=== PATIENT | male | born 1935 | race African-American/Black ===

== ENCOUNTER 2017-01-26 18:10 | Inpatient (IN) | payer MEDICARE, BC ==
[~2017-01-26] VITALS: Ht 172.7 cm; Wt 78.0 kg
[~2017-01-26 18:10] MED LIST: ACYC200C PO; ALLO300T2 PO; AMLO5TAB88 PO; ASPI325T2 PO; FERR-63 PO; METO50TA5 PO; POMALYST PO; SEVE800T8 PO
[2017-01-26 18:58] VITALS: BP 140/79
[2017-01-26 20:00] VITALS: BP 140/79
[2017-01-26] MEDS ORDERED: ONDANSETRON HCL 4MG/2ML VIAL IV PRN (20:15)
[2017-01-26] MEDS ORDERED: GUAIFENESIN 200MG/10ML SUGAR FREE UDC PO PRN (20:15)
[2017-01-26] MEDS ORDERED: CLONIDINE 0.1MG TABLET PO PRN (20:30)
[2017-01-26] MEDS ORDERED: LIDOCAINE HCL 4% CREAM 76GM TUBE TP SCH (21:00)
[2017-01-26] MEDS: IPRATROPIUM/ALBUTEROL 0.5-3(2.5)MG/3ML NEB HHN SCH (21:14)
[2017-01-26] MEDS: METOPROLOL TARTRATE 25MG TABLET PO SCH (21:52)
[2017-01-26] MEDS: SODIUM CHLORIDE 0.45% 1,000 ML IV SCH (21:53)
[2017-01-26] MEDS: LIDOCAINE HCL 4% CREAM 76GM TUBE TP SCH (23:08)
[2017-01-27] MEDS: IPRATROPIUM/ALBUTEROL 0.5-3(2.5)MG/3ML NEB HHN SCH ×6 (01:01→20:57)
[2017-01-27] MEDS: SODIUM CHLORIDE 0.45% 1,000 ML IV SCH ×2 (06:28→16:43)
[2017-01-27 08:00] VITALS: BP 121/66
[2017-01-27] MEDS: FOLIC ACID/VITAMIN B COMP W-C TABLET PO SCH (09:18)
[2017-01-27] MEDS: SODIUM BICARBONATE 650 MG TABLET PO SCH ×3 (09:18→16:43)
[2017-01-27] MEDS: DOCUSATE SODIUM 250MG CAPSULE PO SCH (09:18)
[2017-01-27] MEDS: LIDOCAINE HCL 4% CREAM 76GM TUBE TP SCH ×2 (09:19→20:46)
[2017-01-27] MEDS: METOPROLOL TARTRATE 25MG TABLET PO SCH ×2 (09:19→20:45)
[2017-01-27] MEDS: SEVELAMER CARBONATE 800 MG TABLET PO SCH ×3 (09:19→16:43)
[2017-01-27] MEDS: ACETAMINOPHEN 325MG TABLET PO PRN ×2 (12:08→16:50)
[2017-01-27 20:00] VITALS: BP 120/72
[2017-01-28] MEDS: SODIUM CHLORIDE 0.45% 1,000 ML IV SCH ×2 (00:09→12:03)
[2017-01-28] MEDS: IPRATROPIUM/ALBUTEROL 0.5-3(2.5)MG/3ML NEB HHN SCH ×6 (02:00→20:19)
[2017-01-28] MEDS: ACETAMINOPHEN 325MG TABLET PO PRN ×2 (02:58→21:14)
[2017-01-28 08:00] VITALS: BP 127/65
[2017-01-28] MEDS: SODIUM BICARBONATE 650 MG TABLET PO SCH ×3 (08:12→16:43)
[2017-01-28] MEDS: DOCUSATE SODIUM 250MG CAPSULE PO SCH (08:12)
[2017-01-28] MEDS: SEVELAMER CARBONATE 800 MG TABLET PO SCH ×3 (08:12→16:42)
[2017-01-28] MEDS: FOLIC ACID/VITAMIN B COMP W-C TABLET PO SCH (08:12)
[2017-01-28] MEDS: COLCHICINE 0.6MG TABLET PO SCH (08:12)
[2017-01-28] MEDS: METOPROLOL TARTRATE 25MG TABLET PO SCH ×2 (08:12→21:13)
[2017-01-28] MEDS: LIDOCAINE HCL 4% CREAM 76GM TUBE TP SCH ×2 (08:13→21:16)
[2017-01-28 08:20] LABS: HEMOGLOBIN. 10.2 g/dL (14.0-18.0); MEAN CORPUSCULAR HEMOGLOBIN 29.8 pg (28.0-32.0); MEAN CORPUSCULAR HGB CONC 33.9 g/dL (31.0-37.0); MEAN CORPUSCULAR VOLUME 88.1 fL (80.0-94.0); MEAN PLATELET VOLUME 6.9 fl (7.4-10.4); PLATELET 220 x1000/uL (130-400); RED BLOOD CELL COUNT 3.41 mill/uL (4.7-6.1); RED CELL DISTRIBUTION WIDTH 16.9 % (11.6-14.6); WHITE BLOOD COUNT 6.4 x1000/uL (4.5-11.0)
[2017-01-28 08:29] LABS: DIFFERENTIAL COMMENT 1
[2017-01-28 08:36] LABS: CALCIUM 7.5 mg/dL (8.5-10.1)
[2017-01-28 10:13] LABS: ANISOCYTOSIS 1+; PLATELET ESTIMATE NORMAL
[2017-01-28 20:00] VITALS: BP 129/69
[2017-01-29] MEDS: IPRATROPIUM/ALBUTEROL 0.5-3(2.5)MG/3ML NEB HHN SCH ×6 (00:32→20:57)
[2017-01-29] MEDS: SODIUM CHLORIDE 0.45% 1,000 ML IV SCH ×3 (02:28→18:49)
[2017-01-29] MEDS: ACETAMINOPHEN 325MG TABLET PO PRN (06:38)
[2017-01-29 08:00] VITALS: BP 139/78
[2017-01-29] MEDS: DOCUSATE SODIUM 250MG CAPSULE PO SCH (09:14)
[2017-01-29] MEDS: FOLIC ACID/VITAMIN B COMP W-C TABLET PO SCH (09:14)
[2017-01-29] MEDS: METOPROLOL TARTRATE 25MG TABLET PO SCH ×2 (09:14→22:33)
[2017-01-29] MEDS: SEVELAMER CARBONATE 800 MG TABLET PO SCH ×3 (09:14→16:30)
[2017-01-29] MEDS: SODIUM BICARBONATE 650 MG TABLET PO SCH ×3 (09:14→16:30)
[2017-01-29] MEDS: LIDOCAINE HCL 4% CREAM 76GM TUBE TP SCH ×2 (09:15→22:34)
[2017-01-29 20:00] VITALS: BP 133/77
[2017-01-30] MEDS: IPRATROPIUM/ALBUTEROL 0.5-3(2.5)MG/3ML NEB HHN SCH ×6 (00:43→21:14)
[2017-01-30] MEDS: SODIUM CHLORIDE 0.45% 1,000 ML IV SCH ×2 (04:31→17:21)
[2017-01-30 08:00] VITALS: BP 119/77
[2017-01-30] MEDS: COLCHICINE 0.6MG TABLET PO SCH (08:27)
[2017-01-30] MEDS: DOCUSATE SODIUM 250MG CAPSULE PO SCH (08:27)
[2017-01-30] MEDS: FOLIC ACID/VITAMIN B COMP W-C TABLET PO SCH (08:27)
[2017-01-30] MEDS: SEVELAMER CARBONATE 800 MG TABLET PO SCH ×3 (08:27→17:21)
[2017-01-30] MEDS: SODIUM BICARBONATE 650 MG TABLET PO SCH ×3 (08:28→17:20)
[2017-01-30] MEDS: METOPROLOL TARTRATE 25MG TABLET PO SCH ×2 (08:28→22:06)
[2017-01-30] MEDS: LIDOCAINE HCL 4% CREAM 76GM TUBE TP SCH ×2 (08:38→21:00)
[2017-01-30] MEDS: ACETAMINOPHEN 325MG TABLET PO PRN ×2 (09:19→22:08)
[2017-01-30] MEDS: ACETAMINOPHEN 325MG TABLET PO SCH (17:21)
[2017-01-30 20:00] VITALS: BP 127/73
[2017-01-31] MEDS: IPRATROPIUM/ALBUTEROL 0.5-3(2.5)MG/3ML NEB HHN SCH ×7 (00:32→19:47)
[2017-01-31] MEDS: ACETAMINOPHEN 325MG TABLET PO SCH ×2 (07:08→17:22)
[2017-01-31 08:00] VITALS: BP 145/83
[2017-01-31] MEDS: SEVELAMER CARBONATE 800 MG TABLET PO SCH ×3 (09:14→17:22)
[2017-01-31] MEDS: FOLIC ACID/VITAMIN B COMP W-C TABLET PO SCH (09:14)
[2017-01-31] MEDS: DOCUSATE SODIUM 250MG CAPSULE PO SCH (09:14)
[2017-01-31] MEDS: SODIUM BICARBONATE 650 MG TABLET PO SCH ×3 (09:14→17:22)
[2017-01-31] MEDS: METOPROLOL TARTRATE 25MG TABLET PO SCH ×2 (09:15→21:32)
[2017-01-31] MEDS: LIDOCAINE HCL 4% CREAM 76GM TUBE TP SCH ×2 (09:15→21:32)
[2017-01-31] MEDS: SODIUM CHLORIDE 0.45% 1,000 ML IV SCH ×2 (15:24→21:31)
[2017-01-31 20:00] VITALS: BP 156/86
[2017-02-01] MEDS: IPRATROPIUM/ALBUTEROL 0.5-3(2.5)MG/3ML NEB HHN SCH ×7 (00:11→23:56)
[2017-02-01] MEDS: SODIUM CHLORIDE 0.45% 1,000 ML IV SCH ×2 (06:14→16:31)
[2017-02-01] MEDS: ACETAMINOPHEN 325MG TABLET PO SCH ×2 (06:15→16:30)
[2017-02-01 07:12] LABS: BASOPHILS % 3.2 % (0.0-2.0); EOSINOPHILS % 8.7 % (0.0-5.0); HEMATOCRIT. 29.8 % (42.0-52.0); HEMOGLOBIN. 10.1 g/dL (14.0-18.0); LYMPHOCYTES % 11.9 % (20.0-50.0); MEAN CORPUSCULAR HEMOGLOBIN 30.2 pg (28.0-32.0); MEAN CORPUSCULAR VOLUME 88.8 fL (80.0-94.0); MEAN PLATELET VOLUME 7.2 fl (7.4-10.4); MONOCYTES % 13.7 % (2.0-8.0); NEUTROPHILS % 62.5 % (40.0-76.0); PLATELET 227 x1000/uL (130-400); RED BLOOD CELL COUNT 3.35 mill/uL (4.7-6.1); RED CELL DISTRIBUTION WIDTH 16.5 % (11.6-14.6); WHITE BLOOD COUNT 4.7 x1000/uL (4.5-11.0)
[2017-02-01 07:55] LABS: CALCIUM 7.8 mg/dL (8.5-10.1)
[2017-02-01 08:00] VITALS: BP 147/74
[2017-02-01] MEDS ORDERED: AMLODIPINE 2.5MG TABLET PO SCH (09:00)
[2017-02-01] MEDS ORDERED: AMLODIPINE 2.5MG TABLET PO ONE (09:00)
[2017-02-01] MEDS: SEVELAMER CARBONATE 800 MG TABLET PO SCH ×3 (09:15→16:29)
[2017-02-01] MEDS: DOCUSATE SODIUM 250MG CAPSULE PO SCH (09:15)
[2017-02-01] MEDS: SODIUM BICARBONATE 650 MG TABLET PO SCH ×3 (09:15→16:29)
[2017-02-01] MEDS: FOLIC ACID/VITAMIN B COMP W-C TABLET PO SCH (09:15)
[2017-02-01] MEDS: COLCHICINE 0.6MG TABLET PO SCH (09:15)
[2017-02-01] MEDS: ACETAMINOPHEN 325MG TABLET PO PRN (09:16)
[2017-02-01] MEDS: METOPROLOL TARTRATE 25MG TABLET PO SCH ×2 (09:16→21:37)
[2017-02-01] MEDS: LIDOCAINE HCL 4% CREAM 76GM TUBE TP SCH ×2 (09:17→21:41)
[2017-02-01 20:00] VITALS: BP 139/84
[2017-02-02] MEDS: SODIUM CHLORIDE 0.45% 1,000 ML IV SCH ×3 (02:35→23:57)
[2017-02-02] MEDS: IPRATROPIUM/ALBUTEROL 0.5-3(2.5)MG/3ML NEB HHN SCH ×5 (04:00→16:02)
[2017-02-02] MEDS: ACETAMINOPHEN 325MG TABLET PO SCH (05:43)
[2017-02-02 08:00] VITALS: BP 154/81
[2017-02-02] MEDS: DOCUSATE SODIUM 250MG CAPSULE PO SCH (09:46)
[2017-02-02] MEDS: SODIUM BICARBONATE 650 MG TABLET PO SCH ×3 (09:46→16:00)
[2017-02-02] MEDS: FOLIC ACID/VITAMIN B COMP W-C TABLET PO SCH (09:46)
[2017-02-02] MEDS: SEVELAMER CARBONATE 800 MG TABLET PO SCH ×3 (09:46→16:00)
[2017-02-02] MEDS: METOPROLOL TARTRATE 25MG TABLET PO SCH ×2 (09:48→21:31)
[2017-02-02] MEDS: AMLODIPINE 5MG TABLET PO SCH (09:52)
[2017-02-02] MEDS: LIDOCAINE HCL 4% CREAM 76GM TUBE TP SCH ×2 (09:55→21:35)
[2017-02-02 20:43] VITALS: BP 136/81
[2017-02-03] MEDS: IPRATROPIUM/ALBUTEROL 0.5-3(2.5)MG/3ML NEB HHN SCH ×6 (05:06→20:45)
[2017-02-03 08:00] VITALS: BP 144/81
[2017-02-03] MEDS: SODIUM CHLORIDE 0.45% 1,000 ML IV SCH (08:39)
[2017-02-03] MEDS: DOCUSATE SODIUM 250MG CAPSULE PO SCH (08:40)
[2017-02-03] MEDS: FOLIC ACID/VITAMIN B COMP W-C TABLET PO SCH (08:40)
[2017-02-03] MEDS: SODIUM BICARBONATE 650 MG TABLET PO SCH ×3 (08:40→17:26)
[2017-02-03] MEDS: SEVELAMER CARBONATE 800 MG TABLET PO SCH ×3 (08:40→17:26)
[2017-02-03] MEDS: METOPROLOL TARTRATE 25MG TABLET PO SCH ×2 (08:41→22:08)
[2017-02-03] MEDS: COLCHICINE 0.6MG TABLET PO SCH (08:42)
[2017-02-03] MEDS: AMLODIPINE 5MG TABLET PO SCH (08:42)
[2017-02-03] MEDS: LIDOCAINE HCL 4% CREAM 76GM TUBE TP SCH ×2 (08:51→21:00)
[2017-02-03 19:41] VITALS: BP 122/68
[2017-02-04] MEDS: IPRATROPIUM/ALBUTEROL 0.5-3(2.5)MG/3ML NEB HHN SCH ×5 (01:20→20:15)
[2017-02-04] MEDS: SODIUM CHLORIDE 0.45% 1,000 ML IV SCH ×3 (02:43→17:42)
[2017-02-04 08:00] VITALS: BP 146/75
[2017-02-04] MEDS: DOCUSATE SODIUM 250MG CAPSULE PO SCH (08:18)
[2017-02-04] MEDS: AMLODIPINE 5MG TABLET PO SCH (08:19)
[2017-02-04] MEDS: SODIUM BICARBONATE 650 MG TABLET PO SCH ×3 (08:19→17:32)
[2017-02-04] MEDS: FOLIC ACID/VITAMIN B COMP W-C TABLET PO SCH (08:19)
[2017-02-04] MEDS: SEVELAMER CARBONATE 800 MG TABLET PO SCH ×3 (08:19→17:32)
[2017-02-04] MEDS: METOPROLOL TARTRATE 25MG TABLET PO SCH ×2 (08:19→21:02)
[2017-02-04] MEDS: LIDOCAINE HCL 4% CREAM 76GM TUBE TP SCH ×2 (08:21→21:02)
[2017-02-04] MEDS: FERROUS SULFATE 325MG TABLET PO SCH ×3 (09:27→17:32)
[2017-02-04 10:22] LABS: BASOPHILS % 2.8 % (0.0-2.0); EOSINOPHILS % 11.8 % (0.0-5.0); HEMATOCRIT. 33.6 % (42.0-52.0); HEMOGLOBIN. 11.1 g/dL (14.0-18.0); LYMPHOCYTES % 12.9 % (20.0-50.0); MEAN CORPUSCULAR HEMOGLOBIN 29.2 pg (28.0-32.0); MEAN CORPUSCULAR HGB CONC 32.9 g/dL (31.0-37.0); MEAN CORPUSCULAR VOLUME 88.9 fL (80.0-94.0); MEAN PLATELET VOLUME 7.5 fl (7.4-10.4); MONOCYTES % 8.8 % (2.0-8.0); NEUTROPHILS % 63.7 % (40.0-76.0); PLATELET 234 x1000/uL (130-400); RED BLOOD CELL COUNT 3.78 mill/uL (4.7-6.1); RED CELL DISTRIBUTION WIDTH 16.6 % (11.6-14.6)
[2017-02-04 10:45] LABS: CALCIUM 7.7 mg/dL (8.5-10.1)
[2017-02-04 20:00] VITALS: BP 131/75
[2017-02-05] MEDS: IPRATROPIUM/ALBUTEROL 0.5-3(2.5)MG/3ML NEB HHN SCH ×4 (00:23→11:32)
[2017-02-05] MEDS: SODIUM CHLORIDE 0.45% 1,000 ML IV SCH ×2 (00:57→11:00)
[2017-02-05 08:00] VITALS: BP 155/86
[2017-02-05] MEDS: SODIUM BICARBONATE 650 MG TABLET PO SCH ×2 (10:00→13:34)
[2017-02-05] MEDS: DOCUSATE SODIUM 250MG CAPSULE PO SCH (10:00)
[2017-02-05] MEDS: AMLODIPINE 5MG TABLET PO SCH (10:01)
[2017-02-05] MEDS: FOLIC ACID/VITAMIN B COMP W-C TABLET PO SCH (10:01)
[2017-02-05] MEDS: METOPROLOL TARTRATE 25MG TABLET PO SCH (10:01)
[2017-02-05] MEDS: FERROUS SULFATE 325MG TABLET PO SCH ×2 (10:02→13:34)
[2017-02-05] MEDS: SEVELAMER CARBONATE 800 MG TABLET PO SCH ×2 (10:02→13:33)
[2017-02-05] MEDS: COLCHICINE 0.6MG TABLET PO SCH (10:02)
[2017-02-05] MEDS: ACETAMINOPHEN 325MG TABLET PO PRN (10:17)
[2017-02-05] MEDS: LIDOCAINE HCL 4% CREAM 76GM TUBE TP SCH (10:17)
[2017-02-05 13:59] VITALS: BP 133/83
== END 2017-02-05 15:35 | disposition home or self-care (01) | DRG 683 ==
PROVIDERS: ADMIT Psychiatry & Neurology Neurology; ATTEND Internal Medicine Geriatric Medicine
DX: N17.9 Acute kidney failure, unspecified (principal); E44.0 Moderate protein-calorie malnutrition; E87.2 Acidosis; I50.30 Unspecified diastolic (congestive) heart failure; E87.1 Hypo-osmolality and hyponatremia; D64.9 Anemia, unspecified; G30.9 Alzheimer's disease, unspecified; F02.80 Dementia in other diseases classified elsewhere, unspecified severity, without behavioral disturbance, psychotic disturbance, mood disturbance, and anxiety; L89.152 Pressure ulcer of sacral region, stage 2; M19.071 Primary osteoarthritis, right ankle and foot; M19.032 Primary osteoarthritis, left wrist; E11.22 Type 2 diabetes mellitus with diabetic chronic kidney disease; I12.9 Hypertensive chronic kidney disease with stage 1 through stage 4 chronic kidney disease, or unspecified chronic kidney disease; N18.3 Chronic kidney disease, stage 3 (moderate); I48.0 Paroxysmal atrial fibrillation; R53.81 Other malaise; E86.0 Dehydration; M10.00 Idiopathic gout, unspecified site; M81.0 Age-related osteoporosis without current pathological fracture; N40.0 Benign prostatic hyperplasia without lower urinary tract symptoms; F06.8 Other specified mental disorders due to known physiological condition; F10.10 Alcohol abuse, uncomplicated; F06.31 Mood disorder due to known physiological condition with depressive features; Z68.26 Body mass index [BMI] 26.0-26.9, adult; Z99.2 Dependence on renal dialysis; Z85.79 Personal history of other malignant neoplasms of lymphoid, hematopoietic and related tissues
CPT/HCPCS: 36415; 80048; 85025; 94640; 94664; 97110; 97116; 97150; 97162; 97166; 97530; 97535; J7620

== ENCOUNTER 2017-10-14 12:17 | Inpatient (IN) | payer MEDICARE, BC ==
[~2017-10-14] VITALS: Ht 160 cm; Wt 57.2 kg
[~2017-10-14 12:17] MED LIST changes: -ACYC200C PO; -ALLO300T2 PO; -AMLO5TAB88 PO; -ASPI325T2 PO; -METO50TA5 PO; -POMALYST PO
[2017-10-14 13:30] LABS: BASOPHILS % 0.4 % (0.0-2.0); HEMATOCRIT. 24.3 % (42.0-52.0); LYMPHOCYTES % 13.6 % (20.0-50.0); MEAN CORPUSCULAR HEMOGLOBIN 30.3 pg (28.0-32.0); MEAN CORPUSCULAR VOLUME 91.9 fL (80.0-94.0); MEAN PLATELET VOLUME 8.2 fl (7.4-10.4); MONOCYTES % 8.7 % (2.0-8.0); NEUTROPHILS % 76.3 % (40.0-76.0); PLATELET 155 x1000/uL (130-400); RED BLOOD CELL COUNT 2.64 mill/uL (4.7-6.1); RED CELL DISTRIBUTION WIDTH 18.5 % (11.6-14.6)
[2017-10-14 13:37] LABS: PROTHROMBIN TIME 10.9 sec (9.4-11.6)
[2017-10-14 13:43] LABS: CARBON DIOXIDE 23 mEq/L (21-32); CHLORIDE 113 mEq/L (98-107); TROPONIN I < 0.02 ng/mL (0.00-0.04)
[2017-10-14] MEDS ORDERED: INSULIN REGULAR (HUMULIN R) UD 100 UNITS/ML SYR IV ONE (14:30)
[2017-10-14] MEDS ORDERED: DEXTROSE 50% WATER 50ML SYRINGE IV ONE ×4 (14:30→18:15)
[2017-10-14] MEDS ORDERED: CALCIUM CHLORIDE 1GM/10ML SYR IV ONE ×2 (14:30→18:07)
[2017-10-14] MEDS ORDERED: INSULIN REGULAR (HUMULIN R) 300UNITS/3ML IV NR (14:45)
[2017-10-14] MEDS ORDERED: ONDANSETRON HCL 4MG/2ML VIAL IV PRN (17:15)
[2017-10-14] MEDS ORDERED: LACTULOSE 20G/30ML UDC PO ONE (17:15)
[2017-10-14] MEDS ORDERED: IPRATROPIUM/ALBUTEROL 0.5-3(2.5)MG/3ML NEB INH PRN (17:15)
[2017-10-14] MEDS ORDERED: ACETAMINOPHEN 325MG TABLET NG PRN (17:15)
[2017-10-14] MEDS ORDERED: CLONIDINE 0.1MG TABLET PO PRN (17:15)
[2017-10-14] MEDS ORDERED: SODIUM POLYSTYRENE SULFONATE 15 G/60 ML BOT NG NR (17:48)
[2017-10-14] MEDS ORDERED: SODIUM BICARBONATE 8.4% 1 MEQ/ML 50ML SYR IV ONE (18:07)
[2017-10-14] MEDS ORDERED: SODIUM CHLORIDE 0.9% 1,000 ML IV ONE (18:08)
[2017-10-14 23:20] LABS: CREATINE KINASE MB FRACTION 11.8 ng/mL (0.5-3.6); TROPONIN I < 0.02 ng/mL (0.00-0.04)
[2017-10-15] VITALS (13 sets, daily range): BP systolic 97–134; BP diastolic 50–90
[2017-10-15] MEDS ORDERED: MVI, ADULT NO.1 10 ML, FOLIC ACID 1 MG, THIAMINE HCL 100 MG in SODIUM CHLORIDE 0.9% 1,0... IV NR ×4
[2017-10-15 06:55] LABS: BASOPHILS % 0.2 % (0.0-2.0); EOSINOPHILS % 0.4 % (0.0-5.0); HEMATOCRIT. 22.2 % (42.0-52.0); HEMOGLOBIN. 7.5 g/dL (14.0-18.0); MEAN CORPUSCULAR HEMOGLOBIN 31.1 pg (28.0-32.0); MEAN CORPUSCULAR VOLUME 92.2 fL (80.0-94.0); MEAN PLATELET VOLUME 7.7 fl (7.4-10.4); MONOCYTES % 8.7 % (2.0-8.0); NEUTROPHILS % 80.7 % (40.0-76.0); PLATELET 144 x1000/uL (130-400); RED BLOOD CELL COUNT 2.41 mill/uL (4.7-6.1); RED CELL DISTRIBUTION WIDTH 18.6 % (11.6-14.6)
[2017-10-15 07:09] LABS: BG CARBOXYHEMOGLOBIN 0.3 % (0.5-1.5); BG DEOXYHEMOGLOBIN 4.4 % (0.0-5.0); BG HCO3 ACT 18.8 mmol/L (22.0-26.0); BG METHEMOGLOBIN 0.3 % (0.0-1.5); BG OXYGEN SATURATION 95.6 % (92.0-98.5); BG PCO2 39.3 mmHg (35.0-45.0); BG PH 7.298 (7.350-7.450); BG PO2 91.3 mmHg (75.0-100.0); BG SAMPLE SITE RIGHT RADIAL; BG TOTAL HEMOGLOBIN 7.5 g/dL (12.0-18.0); BG VENT MODE ROOM AIR
[2017-10-15 07:22] LABS: AMMONIA < 25 uMol/L (<32)
[2017-10-15 07:26] LABS: CARBON DIOXIDE 23 mEq/L (21-32); CHLORIDE 119 mEq/L (98-107); CREATINE KINASE 113 IU/L (39-308); CREATINE KINASE MB FRACTION 11.2 ng/mL (0.5-3.6); PHOSPHORUS 3.5 mg/dL (2.5-4.9); TROPONIN I < 0.02 ng/mL (0.00-0.04)
[2017-10-15] MEDS: FAMOTIDINE 20MG/2ML VIAL IV SCH (09:04)
[2017-10-15] MEDS: DEXT 5%/0.45% NACL 1000ML 1,000 ML IV SCH ×2 (09:05→23:30)
[2017-10-15] MEDS ORDERED: SODIUM POLYSTYRENE SULFONATE 15 G/60 ML BOT PO SCH (09:15)
[2017-10-15] MEDS ORDERED: DEXTROSE 50% WATER 50ML SYRINGE IV NR (09:45)
[2017-10-15] MEDS ORDERED: CALCIUM GLUCONATE 100MG/ML 10ML VIAL IV ONE (09:45)
[2017-10-15] MEDS ORDERED: DEXTROSE 50% WATER 50ML SYRINGE IV PRN (09:45)
[2017-10-15] MEDS ORDERED: INSULIN REGULAR (HUMULIN R) UD 100 UNITS/ML SYR IV NR ×2 (10:00)
[2017-10-15] MEDS ORDERED: CALCIUM GLUCONATE 1000 MG in DEXTROSE 5% WATER 100 ML IV NR (10:00)
[2017-10-15 10:16] LABS: HEMATOCRIT 23.9 % (42.0-52.0); HEMOGLOBIN 7.9 g/dL (14.0-18.0)
[2017-10-15] MEDS: BLOOD SUGAR DIAGNOSTIC STRIP TEST SCH ×2 (18:03→23:34)
[2017-10-15 18:11] LABS: CLARITY URINE CLEAR (CLEAR); COLOR URINE YELLOW (YELLOW); GLUCOSE URINE NEGATIVE (NEGATIVE); KETONES URINE NEGATIVE (NEGATIVE); LEUKOCYTE ESTERASE URINE NEGATIVE (NEGATIVE); NITRITE URINE NEGATIVE (NEGATIVE); OCCULT BLOOD URINE NEGATIVE (NEGATIVE); PROTEIN URINE TRACE (NEGATIVE); SPECIFIC GRAVITY URINE 1.014 (1.005-1.030); UROBILINOGEN URINE 0.2 E.U./dL (0.2-1.0)
[2017-10-15 18:45] LABS: *AMPHETAMINES SCREEN URINE NEGATIVE (NEGATIVE); *BARBITURATES SCREEN URINE NEGATIVE (NEGATIVE); *BENZODIAZEPINES SCREEN URINE NEGATIVE (NEGATIVE); *COCAINE SCREEN URINE NEGATIVE (NEGATIVE); CANNABINOID URINE SCREEN NEGATIVE (NEGATIVE); METHADONE URINE SCREEN NEGATIVE (NEGATIVE); OPIATES URINE SCREEN NEGATIVE (NEGATIVE); PHENCYCLIDINE URINE SCREEN NEGATIVE (NEGATIVE)
[2017-10-16] VITALS (16 sets, daily range): BP systolic 114–145; BP diastolic 64–96
[2017-10-16] MEDS: BLOOD SUGAR DIAGNOSTIC STRIP TEST SCH ×3 (05:45→17:12)
[2017-10-16 07:44] LABS: BASOPHILS % 0.5 % (0.0-2.0); EOSINOPHILS % 0.7 % (0.0-5.0); HEMATOCRIT. 22.4 % (42.0-52.0); HEMOGLOBIN. 7.5 g/dL (14.0-18.0); LYMPHOCYTES % 11.1 % (20.0-50.0); MEAN CORPUSCULAR HEMOGLOBIN 30.5 pg (28.0-32.0); MEAN CORPUSCULAR VOLUME 91.6 fL (80.0-94.0); MEAN PLATELET VOLUME 8.2 fl (7.4-10.4); MONOCYTES % 10.9 % (2.0-8.0); NEUTROPHILS % 76.8 % (40.0-76.0); PLATELET 142 x1000/uL (130-400); RED BLOOD CELL COUNT 2.45 mill/uL (4.7-6.1); RED CELL DISTRIBUTION WIDTH 18.1 % (11.6-14.6)
[2017-10-16 08:09] LABS: PHOSPHORUS 3.3 mg/dL (2.5-4.9)
[2017-10-16] MEDS: FAMOTIDINE 20MG/2ML VIAL IV SCH (08:53)
[2017-10-16] MEDS ORDERED: MAGNESIUM 2 G PREMIX 50 ML IV SCH (11:00)
[2017-10-16] MEDS: DEXT 5%/0.45% NACL 1000ML 1,000 ML IV SCH (12:29)
[2017-10-16] MEDS: MEMANTINE HCL 5MG TABLET PO SCH (12:53)
[2017-10-17] VITALS (10 sets, daily range): BP systolic 127–152; BP diastolic 63–99
[2017-10-17] MEDS: BLOOD SUGAR DIAGNOSTIC STRIP TEST SCH ×4 (05:59→17:58)
[2017-10-17 06:53] LABS: BASOPHILS % 0.4 % (0.0-2.0); EOSINOPHILS % 1.5 % (0.0-5.0); HEMATOCRIT. 25.2 % (42.0-52.0); HEMOGLOBIN. 8.5 g/dL (14.0-18.0); MEAN CORPUSCULAR HEMOGLOBIN 30.1 pg (28.0-32.0); MONOCYTES % 13.7 % (2.0-8.0); NEUTROPHILS % 70.4 % (40.0-76.0); PLATELET 137 x1000/uL (130-400); RED BLOOD CELL COUNT 2.83 mill/uL (4.7-6.1); RED CELL DISTRIBUTION WIDTH 17.5 % (11.6-14.6)
[2017-10-17] MEDS: FAMOTIDINE 20MG/2ML VIAL IV SCH (08:29)
[2017-10-17] MEDS: MEMANTINE HCL 5MG TABLET PO SCH (08:33)
[2017-10-17] MEDS: DEXT 5%/0.45% NACL 1000ML 1,000 ML IV SCH ×3 (13:20→20:25)
[2017-10-18] VITALS (13 sets, daily range): BP systolic 137–160; BP diastolic 77–98
[2017-10-18 07:27] LABS: BASOPHILS % 0.3 % (0.0-2.0); HEMATOCRIT. 25.3 % (42.0-52.0); HEMOGLOBIN. 8.4 g/dL (14.0-18.0); LYMPHOCYTES % 9.1 % (20.0-50.0); MEAN CORPUSCULAR HEMOGLOBIN 30.2 pg (28.0-32.0); MEAN CORPUSCULAR VOLUME 90.3 fL (80.0-94.0); MEAN PLATELET VOLUME 8.1 fl (7.4-10.4); MONOCYTES % 13.9 % (2.0-8.0); NEUTROPHILS % 75.7 % (40.0-76.0); PLATELET 125 x1000/uL (130-400); RED CELL DISTRIBUTION WIDTH 17.8 % (11.6-14.6)
[2017-10-18] MEDS: DEXT 5%/0.45% NACL 1000ML 1,000 ML IV SCH (09:27)
[2017-10-18] MEDS: MEMANTINE HCL 5MG TABLET PO SCH (09:27)
[2017-10-18] MEDS: FAMOTIDINE 20MG/2ML VIAL IV SCH (09:27)
[2017-10-18] MEDS: BLOOD SUGAR DIAGNOSTIC STRIP TEST SCH ×3 (18:00→23:40)
[2017-10-19] VITALS (12 sets, daily range): BP systolic 124–170; BP diastolic 55–92
[2017-10-19] MEDS: BLOOD SUGAR DIAGNOSTIC STRIP TEST SCH ×4 (06:00→18:00)
[2017-10-19] MEDS: DEXT 5%/0.45% NACL 1000ML 1,000 ML IV SCH ×2 (06:13→22:00)
[2017-10-19 06:47] LABS: HEMATOCRIT. 24.5 % (42.0-52.0); HEMOGLOBIN. 8.3 g/dL (14.0-18.0); MEAN CORPUSCULAR HEMOGLOBIN 30.8 pg (28.0-32.0); MEAN CORPUSCULAR VOLUME 90.4 fL (80.0-94.0); PLATELET 125 x1000/uL (130-400); RED BLOOD CELL COUNT 2.71 mill/uL (4.7-6.1); RED CELL DISTRIBUTION WIDTH 17.6 % (11.6-14.6)
[2017-10-19] MEDS: FAMOTIDINE 20MG/2ML VIAL IV SCH (09:21)
[2017-10-19] MEDS: MEMANTINE HCL 5MG TABLET PO SCH (09:23)
[2017-10-19 16:11] LABS: PLATELET ESTIMATE DECREASED
[2017-10-20] VITALS (10 sets, daily range): BP systolic 125–151; BP diastolic 61–94
[2017-10-20] MEDS: BLOOD SUGAR DIAGNOSTIC STRIP TEST SCH ×4 (06:00→17:58)
[2017-10-20] MEDS: DEXT 5%/0.45% NACL 1000ML 1,000 ML IV SCH ×2 (08:00→21:20)
[2017-10-20] MEDS: MEMANTINE HCL 5MG TABLET PO SCH (08:46)
[2017-10-20] MEDS: FAMOTIDINE 20MG/2ML VIAL IV SCH (08:46)
[2017-10-21] VITALS (9 sets, daily range): BP systolic 103–147; BP diastolic 44–94
[2017-10-21] MEDS: BLOOD SUGAR DIAGNOSTIC STRIP TEST SCH ×4 (00:08→16:54)
[2017-10-21 06:35] LABS: BASOPHILS % 0.2 % (0.0-2.0); EOSINOPHILS % 0.5 % (0.0-5.0); HEMATOCRIT. 26.3 % (42.0-52.0); HEMOGLOBIN. 9.1 g/dL (14.0-18.0); LYMPHOCYTES % 8.1 % (20.0-50.0); MEAN CORPUSCULAR HEMOGLOBIN 31.2 pg (28.0-32.0); MEAN CORPUSCULAR VOLUME 90.2 fL (80.0-94.0); MEAN PLATELET VOLUME 8.1 fl (7.4-10.4); MONOCYTES % 10.2 % (2.0-8.0); PLATELET 128 x1000/uL (130-400); RED BLOOD CELL COUNT 2.91 mill/uL (4.7-6.1); RED CELL DISTRIBUTION WIDTH 17.5 % (11.6-14.6)
[2017-10-21 07:54] LABS: BG BASE EXCESS -7.3 mmol/L (-2.0-2.0); BG CARBOXYHEMOGLOBIN 0.3 % (0.5-1.5); BG FRACTION INSPIRED OXYGEN 21; BG HCO3 ACT 17.9 mmol/L (22.0-26.0); BG OXYHEMOGLOBIN 96.7 % (94.0-97.0); BG PCO2 34.5 mmHg (35.0-45.0); BG PH 7.332 (7.350-7.450); BG PO2 105.2 mmHg (75.0-100.0); BG SAMPLE SITE RIGHT BRACHIAL; BG TOTAL HEMOGLOBIN 8.3 g/dL (12.0-18.0); BG VENT MODE ROOM AIR
[2017-10-21] MEDS: MEMANTINE HCL 5MG TABLET PO SCH (09:01)
[2017-10-21] MEDS: FAMOTIDINE 20MG/2ML VIAL IV SCH (09:01)
[2017-10-21] MEDS: DEXT 5%/0.45% NACL 1000ML 1,000 ML IV SCH (09:02)
[2017-10-21] MEDS ORDERED: COLCHICINE 0.6MG TABLET PO NR (09:45)
[2017-10-21] MEDS ORDERED: CEFTRIAXONE 1 G PREMIX 50 ML IV SCH (12:00)
[2017-10-21] MEDS ORDERED: CITRIC ACID/SODIUM CITRATE SOLN 15ML UDC PO SCH (14:15)
[2017-10-22] MEDS ORDERED: COLCHICINE 0.6MG TABLET PO SCH (09:00)
== END 2017-10-21 18:09 | DRG 70 ==
LOC: ER 12:30 → 5EST 14:26 → EDBEDREQSVC 17:10 → EDBEDREQTM 17:10 → CANRESERV 21:03 → ENRESERV 21:03 → 5EST 10-20 09:49
PROVIDERS: ADMIT Internal Medicine Geriatric Medicine; ATTEND Internal Medicine Nephrology
PROC: 30233N1 Transfusion of Nonautologous Red Blood Cells into Peripheral Vein, Percutaneous Approach (ICD-10-PCS; principal; 2017-10-16)
DX: G93.41 Metabolic encephalopathy (principal); N17.0 Acute kidney failure with tubular necrosis; E43 Unspecified severe protein-calorie malnutrition; E11.22 Type 2 diabetes mellitus with diabetic chronic kidney disease; E11.649 Type 2 diabetes mellitus with hypoglycemia without coma; E87.2 Acidosis; R56.9 Unspecified convulsions; I48.0 Paroxysmal atrial fibrillation; E87.5 Hyperkalemia; N18.4 Chronic kidney disease, stage 4 (severe); C90.01 Multiple myeloma in remission; I13.0 Hypertensive heart and chronic kidney disease with heart failure and stage 1 through stage 4 chronic kidney disease, or unspecified chronic kidney disease; I50.9 Heart failure, unspecified; I80.9 Phlebitis and thrombophlebitis of unspecified site; E86.0 Dehydration; G30.9 Alzheimer's disease, unspecified; F02.80 Dementia in other diseases classified elsewhere, unspecified severity, without behavioral disturbance, psychotic disturbance, mood disturbance, and anxiety; N40.0 Benign prostatic hyperplasia without lower urinary tract symptoms; D63.1 Anemia in chronic kidney disease; H91.90 Unspecified hearing loss, unspecified ear; M10.9 Gout, unspecified; M81.0 Age-related osteoporosis without current pathological fracture; K59.09 Other constipation; M19.90 Unspecified osteoarthritis, unspecified site; E83.42 Hypomagnesemia; Z68.22 Body mass index [BMI] 22.0-22.9, adult; Z22.322 Carrier or suspected carrier of Methicillin resistant Staphylococcus aureus
CPT/HCPCS: 36415; 36430; 36600; 70450; 71010; 80048; 80053; 80305; 81001; 82140; 82270; 82375; 82550; 82553; 82805; 82962; 83540; 83550; 83735; 83880; 84100; 84132; 84484; 84550; 85014; 85018; 85025; 85610; 86850; 86900; 86920; 93005; 93970; 97116; 97163; 97530; 99285; A6261; J0610; J0696; J1815; J3411; J3475; J3490; J7030; J7040; J7060; P9016; A4315

== ENCOUNTER 2019-05-24 13:27 | Inpatient (IN) | payer MEDICARE, BC ==
[~2019-05-24] VITALS: Ht 167.6 cm; Wt 49.4 kg
[~2019-05-24 13:27] MED LIST changes: +ALLO100T PO; +AMLO5TAB88 PO; -FERR-63 PO; +FERR325T6 PO; +GALA8CAP5 PO; +METO-539 PO; +PRED-276 PO; -SEVE800T8 PO
[2019-05-24 15:52] LABS: BASOPHILS % 0.6 % (0.0-2.0); EOSINOPHILS % 0.3 % (0.0-5.0); HEMATOCRIT. 31.8 % (42.0-52.0); HEMOGLOBIN. 10.6 g/dL (14.0-18.0); LYMPHOCYTES % 14.8 % (20.0-50.0); MEAN CORPUSCULAR HEMOGLOBIN 29.9 pg (28.0-32.0); MEAN CORPUSCULAR VOLUME 90.3 fL (80.0-94.0); MEAN PLATELET VOLUME 7.1 fl (7.4-10.4); MONOCYTES % 12.9 % (2.0-8.0); NEUTROPHILS % 71.4 % (40.0-76.0); PLATELET 115 x1000/uL (130-400); RED BLOOD CELL COUNT 3.53 mill/uL (4.7-6.1); RED CELL DISTRIBUTION WIDTH 21.2 % (11.6-14.6)
[2019-05-24 15:56] LABS: CHLORIDE 100 mEq/L (98-107)
[2019-05-24 15:59] LABS: BG CARBOXYHEMOGLOBIN 0.3 % (0.5-1.5); BG DEOXYHEMOGLOBIN 5.9 % (0.0-5.0); BG FRACTION INSPIRED OXYGEN 21; BG HCO3 ACT 32.5 mmol/L (22.0-26.0); BG METHEMOGLOBIN 0.2 % (0.0-1.5); BG OXYGEN SATURATION 94.1 % (92.0-98.5); BG OXYHEMOGLOBIN 93.6 % (94.0-97.0); BG PCO2 45.2 mmHg (35.0-45.0); BG PH 7.475 (7.350-7.450); BG PO2 72.5 mmHg (75.0-100.0); BG SAMPLE SITE RIGHT RADIAL; BG TOTAL HEMOGLOBIN 10.7 g/dL (12.0-18.0); BG VENT MODE ROOM AIR
[2019-05-24] MEDS ORDERED: AZITHROMYCIN 500 MG in DEXT 5% WATER 250 ML IV SCH (17:45)
[2019-05-24 21:25] VITALS: BP 105/47
[2019-05-24 21:30] VITALS: BP 108/47
[2019-05-24] MEDS ORDERED: LORAZEPAM 2MG/ML CPJ IM NR (22:15)
[2019-05-24] MEDS ORDERED: ACETAMINOPHEN 325MG TABLET PO PRN (22:15)
[2019-05-24] MEDS ORDERED: IPRATROPIUM/ALBUTEROL 0.5-3(2.5)MG/3ML NEB HHN PRN (22:15)
[2019-05-24] MEDS: HYDRALAZINE HCL 25MG TABLET PO SCH (22:30)
[2019-05-24] MEDS ORDERED: PIPERACILLIN/TAZOBACTAM 2.25 G in DEXTROSE 5% WATER 50 ML IV SCH (23:30)
[2019-05-25] VITALS: BP 119/43
[2019-05-25] MEDS: PIPERACILLIN/TAZ 2.25G PREMIX 50 ML IV SCH ×4 (00:38→21:44)
[2019-05-25 04:00] VITALS: BP 138/69
[2019-05-25] MEDS: HYDRALAZINE HCL 25MG TABLET PO SCH ×3 (06:00→21:44)
[2019-05-25 06:33] LABS: BASOPHILS % 0.6 % (0.0-2.0); EOSINOPHILS % 0.9 % (0.0-5.0); HEMATOCRIT. 30.4 % (42.0-52.0); HEMOGLOBIN. 10.2 g/dL (14.0-18.0); LYMPHOCYTES % 35.5 % (20.0-50.0); MEAN CORPUSCULAR VOLUME 89.5 fL (80.0-94.0); MEAN PLATELET VOLUME 7.2 fl (7.4-10.4); MONOCYTES % 14.5 % (2.0-8.0); NEUTROPHILS % 48.5 % (40.0-76.0); PLATELET 114 x1000/uL (130-400); RED BLOOD CELL COUNT 3.39 mill/uL (4.7-6.1); RED CELL DISTRIBUTION WIDTH 21.6 % (11.6-14.6)
[2019-05-25 06:42] LABS: CHLORIDE 101 mEq/L (98-107)
[2019-05-25 08:00] VITALS: BP 123/69
[2019-05-25 12:00] VITALS: BP 128/64
[2019-05-25 16:00] VITALS: BP 113/50
[2019-05-25 20:00] VITALS: BP 105/50
[2019-05-26] VITALS: BP 102/50
[2019-05-26 04:00] VITALS: BP 100/46
[2019-05-26] MEDS: HYDRALAZINE HCL 25MG TABLET PO SCH ×3 (05:38→21:16)
[2019-05-26] MEDS: PIPERACILLIN/TAZ 2.25G PREMIX 50 ML IV SCH (05:38)
[2019-05-26 08:00] VITALS: BP 122/49
[2019-05-26] MEDS ORDERED: ALLOPURINOL 100 MG TABLET PO NR (11:15)
[2019-05-26] MEDS ORDERED: DOCUSATE SODIUM 250MG CAPSULE PO NR (11:15)
[2019-05-26] MEDS ORDERED: GALANTAMINE HBR 8MG ER CAPSULE 24HR PO NR (11:15)
[2019-05-26] MEDS ORDERED: ACETAMINOPHEN 325MG TABLET PO PRN (11:15)
[2019-05-26] MEDS: ENOXAPARIN 30MG/0.3ML SYR SUBCUT SCH (11:26)
[2019-05-26 11:41] LABS: BG BASE EXCESS 9.3 mmol/L (-2.0-2.0); BG DEOXYHEMOGLOBIN 4.3 % (0.0-5.0); BG FRACTION INSPIRED OXYGEN 21; BG HCO3 ACT 33.7 mmol/L (22.0-26.0); BG METHEMOGLOBIN 0.2 % (0.0-1.5); BG OXYGEN SATURATION 95.7 % (92.0-98.5); BG OXYHEMOGLOBIN 95.5 % (94.0-97.0); BG PCO2 45.2 mmHg (35.0-45.0); BG PO2 79.3 mmHg (75.0-100.0); BG SAMPLE SITE RIGHT BRACHIAL; BG TOTAL HEMOGLOBIN 10.4 g/dL (12.0-18.0); BG VENT MODE ROOM AIR
[2019-05-26 12:00] VITALS: BP 143/56
[2019-05-26] MEDS: IPRATROPIUM/ALBUTEROL 0.5-3(2.5)MG/3ML NEB HHN SCH ×3 (12:18→20:23)
[2019-05-26] MEDS ORDERED: LEVOFLOXACIN 250MG PREMIX 50 ML IV SCH (13:00)
[2019-05-26 16:00] VITALS: BP 124/46
[2019-05-26] MEDS: CALCIUM ACETATE 667MG CAPSULE PO SCH (17:41)
[2019-05-26 20:00] VITALS: BP 105/55
[2019-05-27] VITALS: BP 98/52
[2019-05-27] MEDS: IPRATROPIUM/ALBUTEROL 0.5-3(2.5)MG/3ML NEB HHN SCH ×6 (01:24→16:27)
[2019-05-27 04:00] VITALS: BP 104/51
[2019-05-27] MEDS: HYDRALAZINE HCL 25MG TABLET PO SCH ×2 (05:29→14:08)
[2019-05-27 06:20] LABS: BASOPHILS % 0.3 % (0.0-2.0); EOSINOPHILS % 0.7 % (0.0-5.0); HEMATOCRIT. 28.6 % (42.0-52.0); HEMOGLOBIN. 9.6 g/dL (14.0-18.0); LYMPHOCYTES % 28.3 % (20.0-50.0); MEAN CORPUSCULAR VOLUME 89.5 fL (80.0-94.0); MEAN PLATELET VOLUME 7.3 fl (7.4-10.4); MONOCYTES % 13.5 % (2.0-8.0); NEUTROPHILS % 57.2 % (40.0-76.0); PLATELET 115 x1000/uL (130-400); RED BLOOD CELL COUNT 3.19 mill/uL (4.7-6.1); RED CELL DISTRIBUTION WIDTH 21.6 % (11.6-14.6)
[2019-05-27 06:56] LABS: PHOSPHORUS 3.4 mg/dL (2.5-4.9)
[2019-05-27] MEDS: CALCIUM ACETATE 667MG CAPSULE PO SCH ×3 (07:44→17:32)
[2019-05-27 08:00] VITALS: BP 116/59
[2019-05-27] MEDS: ENOXAPARIN 30MG/0.3ML SYR SUBCUT SCH (08:07)
[2019-05-27] MEDS ORDERED: FOLIC ACID/VITAMIN B COMP W-C TABLET PO SCH (09:00)
[2019-05-27] MEDS ORDERED: DOCUSATE SODIUM 250MG CAPSULE PO SCH (09:00)
[2019-05-27] MEDS ORDERED: GALANTAMINE HBR 8MG ER CAPSULE 24HR PO SCH (09:00)
[2019-05-27] MEDS ORDERED: ALLOPURINOL 100 MG TABLET PO SCH (09:00)
[2019-05-27 12:00] VITALS: BP 122/78
[2019-05-27 16:00] VITALS: BP 109/66
[2019-05-27 16:54] VITALS: BP_SYST 109; BP_SYST 127; BP_DIAS 66; BP_DIAS 73
== END 2019-05-27 18:55 | disposition home health service (06) | DRG 190 ==
LOC: ER 13:27 → 8WST 18:05 → EDBEDREQ 18:08 → EDBEDREQTM 18:08 → ENRESERV 20:49
PROVIDERS: ADMIT Internal Medicine Geriatric Medicine; ATTEND Internal Medicine Geriatric Medicine
PROC: 5A1D70Z Performance of Urinary Filtration, Intermittent, Less than 6 Hours Per Day (ICD-10-PCS; principal; 2019-05-25)
PROC: 5A1D70Z Performance of Urinary Filtration, Intermittent, Less than 6 Hours Per Day (ICD-10-PCS; 2019-05-27)
DX: J44.0 Chronic obstructive pulmonary disease with (acute) lower respiratory infection (principal); N18.6 End stage renal disease; E44.0 Moderate protein-calorie malnutrition; F02.81 Dementia in other diseases classified elsewhere, unspecified severity, with behavioral disturbance; I50.32 Chronic diastolic (congestive) heart failure; Z68.1 Body mass index [BMI] 19.9 or less, adult; I13.2 Hypertensive heart and chronic kidney disease with heart failure and with stage 5 chronic kidney disease, or end stage renal disease; C90.00 Multiple myeloma not having achieved remission; G30.9 Alzheimer's disease, unspecified; J20.9 Acute bronchitis, unspecified; D63.8 Anemia in other chronic diseases classified elsewhere; M10.9 Gout, unspecified; I25.10 Atherosclerotic heart disease of native coronary artery without angina pectoris; R53.81 Other malaise; M17.0 Bilateral primary osteoarthritis of knee; M19.079 Primary osteoarthritis, unspecified ankle and foot; I48.0 Paroxysmal atrial fibrillation; M81.0 Age-related osteoporosis without current pathological fracture; Z99.2 Dependence on renal dialysis; Z79.899 Other long term (current) drug therapy; Z85.89 Personal history of malignant neoplasm of other organs and systems; Z87.81 Personal history of (healed) traumatic fracture
CPT/HCPCS: 36415; 36600; 71045; 80048; 82375; 82805; 83605; 84100; 92610; 93005; 94640; 96374; 96375; 99285; A6261; C1893; J0456; J1650; J1956; J2543; J7050; J7060; J7620

== ENCOUNTER 2019-09-10 10:17 | Inpatient (IN) | payer MEDICARE, BC ==
[~2019-09-10] VITALS: Ht 172.7 cm; Wt 77.6 kg
[~2019-09-10 10:17] MED LIST changes: -AMLO5TAB88 PO
[2019-09-10] MEDS ORDERED: METHYLPREDNISOLONE SOD SUCC 125 MG/2 ML VIAL IV STA (11:24)
[2019-09-10] MEDS ORDERED: IPRATROPIUM BROMIDE (0.02%) 0.5MG/2.5ML NEB HHN STA (11:24)
[2019-09-10] MEDS ORDERED: ALBUTEROL (0.083%) 2.5MG/3ML NEB HHN STA (11:24)
[2019-09-10] MEDS ORDERED: SODIUM CHLORIDE 0.9% 1000ML BAG (SEPSIS BOLUS) IV ONE (11:30)
[2019-09-10] MEDS ORDERED: LEVOFLOXACIN 750MG PREMIX 150 ML IV ONE (11:30)
[2019-09-10] MEDS ORDERED: ASPIRIN 81MG TABLET PO ONE (11:30)
[2019-09-10 13:13] LABS: BASOPHILS % 0.2 % (0.0-2.0); EOSINOPHILS % 0.1 % (0.0-5.0); HEMATOCRIT. 35.1 % (42.0-52.0); HEMOGLOBIN. 11.5 g/dL (14.0-18.0); LYMPHOCYTES % 7.8 % (20.0-50.0); MEAN CORPUSCULAR HEMOGLOBIN 29.2 pg (28.0-32.0); MEAN CORPUSCULAR VOLUME 89.5 fL (80.0-94.0); MEAN PLATELET VOLUME 7.8 fl (7.4-10.4); MONOCYTES % 6.5 % (2.0-8.0); NEUTROPHILS % 85.4 % (40.0-76.0); PLATELET 164 x1000/uL (130-400); RED BLOOD CELL COUNT 3.92 mill/uL (4.7-6.1); RED CELL DISTRIBUTION WIDTH 22.1 % (11.6-14.6)
[2019-09-10 13:57] LABS: PLATELET ESTIMATE NORMAL
[2019-09-10 14:48] LABS: CHLORIDE 102 mEq/L (98-107)
[2019-09-10 18:00] VITALS: BP 100/64
[2019-09-10 20:00] VITALS: BP 116/57
[2019-09-10] MEDS ORDERED: ACETAMINOPHEN 325MG TABLET PO PRN (20:45)
[2019-09-10] MEDS ORDERED: GUAIFENESIN/CODEINE 200-20MG/10ML UDC PO PRN (20:45)
[2019-09-10] MEDS ORDERED: IPRATROPIUM/ALBUTEROL 0.5-3(2.5)MG/3ML NEB HHN PRN (20:45)
[2019-09-10] MEDS ORDERED: CLONIDINE 0.1MG TABLET PO PRN (20:45)
[2019-09-10] MEDS ORDERED: MAGNESIUM/ALUMINUM HYDROXIDE/SIMETHICONE 30ML UDC PO PRN (20:45)
[2019-09-10] MEDS ORDERED: ONDANSETRON HCL 4MG/2ML INJ IV PRN (20:45)
[2019-09-10] MEDS ORDERED: FUROSEMIDE 40MG/4ML VIAL IVP NR (21:30)
[2019-09-10] MEDS: GUAIFENESIN 600MG ER TABLET PO SCH (21:48)
[2019-09-10] MEDS: ENOXAPARIN 30MG/0.3ML SYR SUBCUT SCH (21:49)
[2019-09-10] MEDS: IPRATROPIUM/ALBUTEROL 0.5-3(2.5)MG/3ML NEB HHN SCH (21:55)
[2019-09-11] VITALS: BP 115/55
[2019-09-11] MEDS ORDERED: HEPARIN SODIUM 1,000 UNIT/1ML VIAL IV SCH (01:07)
[2019-09-11] MEDS: IPRATROPIUM/ALBUTEROL 0.5-3(2.5)MG/3ML NEB HHN SCH ×6 (01:27→20:46)
[2019-09-11 04:00] VITALS: BP 97/46
[2019-09-11 07:50] LABS: CHLORIDE 106 mEq/L (98-107)
[2019-09-11 08:00] VITALS: BP 122/68
[2019-09-11 08:02] LABS: BASOPHILS % 0.1 % (0.0-2.0); HEMATOCRIT. 26.3 % (42.0-52.0); HEMOGLOBIN. 8.9 g/dL (14.0-18.0); MEAN CORPUSCULAR HEMOGLOBIN 29.6 pg (28.0-32.0); MEAN CORPUSCULAR VOLUME 87.6 fL (80.0-94.0); MEAN PLATELET VOLUME 7.1 fl (7.4-10.4); NEUTROPHILS % 84.9 % (40.0-76.0); PHOSPHORUS 6.5 mg/dL (2.5-4.9); PLATELET 119 x1000/uL (130-400); RED BLOOD CELL COUNT 3.01 mill/uL (4.7-6.1); RED CELL DISTRIBUTION WIDTH 21.5 % (11.6-14.6)
[2019-09-11] MEDS: METOPROLOL TARTRATE 50MG TABLET PO SCH ×2 (09:00→20:13)
[2019-09-11] MEDS: GALANTAMINE HBR 8MG ER CAPSULE 24HR PO SCH (09:00)
[2019-09-11] MEDS ORDERED: FUROSEMIDE 40MG/4ML VIAL IVP SCH (09:00)
[2019-09-11] MEDS: GUAIFENESIN 600MG ER TABLET PO SCH ×2 (09:41→20:12)
[2019-09-11] MEDS: FOLIC ACID/VITAMIN B COMP W-C TABLET PO SCH (09:41)
[2019-09-11 11:19] LABS: HEMOGLOBIN 10.1 g/dL (14.0-18.0)
[2019-09-11 12:00] VITALS: BP 103/54
[2019-09-11] MEDS: ALLOPURINOL 100 MG TABLET PO SCH (14:01)
[2019-09-11 16:00] VITALS: BP 160/61
[2019-09-11 20:00] VITALS: BP 99/55
[2019-09-11] MEDS: ATORVASTATIN CALCIUM 40MG TABLET PO SCH (20:12)
[2019-09-11] MEDS: CLOPIDOGREL 75MG TABLET PO SCH (20:12)
[2019-09-11] MEDS: ENOXAPARIN 30MG/0.3ML SYR SUBCUT SCH (20:13)
[2019-09-11] MEDS ORDERED: EPOETIN ALFA 10000UNITS/ML VIAL SUBCUT SCH (21:00)
[2019-09-12] VITALS (7 sets, daily range): BP systolic 111–154; BP diastolic 38–98
[2019-09-12] MEDS: IPRATROPIUM/ALBUTEROL 0.5-3(2.5)MG/3ML NEB HHN SCH ×2 (00:50→04:49)
[2019-09-12] MEDS ORDERED: LACTULOSE 20G/30ML UDC PO NR (08:15)
[2019-09-12 08:35] LABS: BASOPHILS % 0.1 % (0.0-2.0); HEMATOCRIT. 28.2 % (42.0-52.0); HEMOGLOBIN. 9.4 g/dL (14.0-18.0); LYMPHOCYTES % 11.5 % (20.0-50.0); MEAN CORPUSCULAR HEMOGLOBIN 29.1 pg (28.0-32.0); MEAN CORPUSCULAR VOLUME 87.5 fL (80.0-94.0); MEAN PLATELET VOLUME 7.3 fl (7.4-10.4); MONOCYTES % 10.4 % (2.0-8.0); PLATELET 146 x1000/uL (130-400); RED BLOOD CELL COUNT 3.23 mill/uL (4.7-6.1); RED CELL DISTRIBUTION WIDTH 21.7 % (11.6-14.6)
[2019-09-12] MEDS: FOLIC ACID/VITAMIN B COMP W-C TABLET PO SCH (11:27)
[2019-09-12] MEDS: METOPROLOL TARTRATE 50MG TABLET PO SCH ×2 (11:27→21:19)
[2019-09-12] MEDS: CLOPIDOGREL 75MG TABLET PO SCH (11:27)
[2019-09-12] MEDS: GUAIFENESIN 600MG ER TABLET PO SCH (11:27)
[2019-09-12] MEDS: ALLOPURINOL 100 MG TABLET PO SCH (11:27)
[2019-09-12] MEDS: GALANTAMINE HBR 8MG ER CAPSULE 24HR PO SCH (17:24)
[2019-09-12] MEDS: ENOXAPARIN 30MG/0.3ML SYR SUBCUT SCH (21:18)
[2019-09-12] MEDS: ATORVASTATIN CALCIUM 40MG TABLET PO SCH (21:19)
== END 2019-09-12 21:30 | DRG 64 ==
LOC: ER 10:17 → 5WST 15:02 → ENRESERV 15:49 → 6WST 16:57 → 8WST 17:21
PROVIDERS: ADMIT Internal Medicine Geriatric Medicine; ATTEND Internal Medicine Geriatric Medicine
PROC: 5A1D70Z Performance of Urinary Filtration, Intermittent, Less than 6 Hours Per Day (ICD-10-PCS; principal; 2019-09-10)
PROC: 5A1D70Z Performance of Urinary Filtration, Intermittent, Less than 6 Hours Per Day (ICD-10-PCS; 2019-09-12)
DX: I63.9 Cerebral infarction, unspecified (principal); N18.6 End stage renal disease; E43 Unspecified severe protein-calorie malnutrition; G93.41 Metabolic encephalopathy; E41 Nutritional marasmus; I50.33 Acute on chronic diastolic (congestive) heart failure; I13.2 Hypertensive heart and chronic kidney disease with heart failure and with stage 5 chronic kidney disease, or end stage renal disease; J44.0 Chronic obstructive pulmonary disease with (acute) lower respiratory infection; J44.1 Chronic obstructive pulmonary disease with (acute) exacerbation; J20.9 Acute bronchitis, unspecified; F02.80 Dementia in other diseases classified elsewhere, unspecified severity, without behavioral disturbance, psychotic disturbance, mood disturbance, and anxiety; G30.9 Alzheimer's disease, unspecified; I95.9 Hypotension, unspecified; M10.9 Gout, unspecified; I48.0 Paroxysmal atrial fibrillation; M19.90 Unspecified osteoarthritis, unspecified site; K57.90 Diverticulosis of intestine, part unspecified, without perforation or abscess without bleeding; M81.0 Age-related osteoporosis without current pathological fracture; D63.1 Anemia in chronic kidney disease; Z68.26 Body mass index [BMI] 26.0-26.9, adult; Z99.2 Dependence on renal dialysis; Z87.01 Personal history of pneumonia (recurrent); Z79.899 Other long term (current) drug therapy; Z85.79 Personal history of other malignant neoplasms of lymphoid, hematopoietic and related tissues
CPT/HCPCS: 36415; 70551; 71045; 71250; 78582; 80048; 80061; 83036; 83605; 83880; 83970; 84100; 84145; 84484; 85014; 85018; 85379; 93005; 93306; 93880; 93970; 94644; 96361; 96365; 96375; 97162; 97530; 99285; A9558; J1650; J1940; J1956; J2930; J7030; J7611; J7620

== ENCOUNTER 2019-09-12 21:35 | Inpatient (IN) | payer MEDICARE, BC ==
[~2019-09-12] VITALS: Ht 172.7 cm; Wt 43.5 kg
[2019-09-12 20:00] VITALS: BP 142/96
[2019-09-12 21:35] VITALS: BP 142/69
[2019-09-12] MEDS ORDERED: GUAIFENESIN/CODEINE 100-10MG/5ML UDC PO PRN (22:45)
[2019-09-12] MEDS ORDERED: ONDANSETRON HCL 4MG/2ML INJ IV PRN (22:45)
[2019-09-12] MEDS ORDERED: CLONIDINE 0.1MG TABLET PO PRN (22:45)
[2019-09-12] MEDS ORDERED: MAGNESIUM/ALUMINUM HYDROXIDE/SIMETHICONE 30ML UDC PO PRN (22:45)
[2019-09-12] MEDS ORDERED: ACETAMINOPHEN 325MG TABLET PO PRN (22:45)
[2019-09-12] MEDS ORDERED: IPRATROPIUM/ALBUTEROL 0.5-3(2.5)MG/3ML NEB HHN PRN (22:45)
[2019-09-13] MEDS: IPRATROPIUM/ALBUTEROL 0.5-3(2.5)MG/3ML NEB HHN SCH ×6 (01:33→19:40)
[2019-09-13 07:38] LABS: HEMATOCRIT. 30.1 % (42.0-52.0); HEMOGLOBIN. 9.9 g/dL (14.0-18.0); MEAN CORPUSCULAR HEMOGLOBIN 28.9 pg (28.0-32.0); MEAN CORPUSCULAR VOLUME 87.6 fL (80.0-94.0); MEAN PLATELET VOLUME 7.4 fl (7.4-10.4); PLATELET 152 x1000/uL (130-400); RED BLOOD CELL COUNT 3.44 mill/uL (4.7-6.1); RED CELL DISTRIBUTION WIDTH 21.9 % (11.6-14.6)
[2019-09-13 08:16] VITALS: BP 137/61
[2019-09-13] MEDS: GALANTAMINE HBR 8MG ER CAPSULE 24HR PO SCH (09:52)
[2019-09-13] MEDS: METOPROLOL TARTRATE 50MG TABLET PO SCH ×2 (09:53→20:29)
[2019-09-13] MEDS: GUAIFENESIN 600MG ER TABLET PO SCH ×2 (09:53→20:30)
[2019-09-13] MEDS: CLOPIDOGREL 75MG TABLET PO SCH (09:53)
[2019-09-13] MEDS: FOLIC ACID/VITAMIN B COMP W-C TABLET PO SCH (09:53)
[2019-09-13] MEDS: ALLOPURINOL 100 MG TABLET PO SCH (09:53)
[2019-09-13 10:22] LABS: PLATELET ESTIMATE NORMAL
[2019-09-13 20:00] VITALS: BP 155/77
[2019-09-13] MEDS: ATORVASTATIN CALCIUM 40MG TABLET PO SCH (20:29)
[2019-09-13] MEDS: ENOXAPARIN 30MG/0.3ML SYR SUBCUT SCH (20:30)
[2019-09-13] MEDS: EPOETIN ALFA 10000UNITS/ML VIAL SUBCUT SCH (20:30)
[2019-09-14] MEDS: IPRATROPIUM/ALBUTEROL 0.5-3(2.5)MG/3ML NEB HHN SCH ×6 (04:00→22:06)
[2019-09-14 08:00] VITALS: BP 137/61
[2019-09-14] MEDS: GALANTAMINE HBR 8MG ER CAPSULE 24HR PO SCH (09:38)
[2019-09-14] MEDS: CLOPIDOGREL 75MG TABLET PO SCH (09:38)
[2019-09-14] MEDS: FOLIC ACID/VITAMIN B COMP W-C TABLET PO SCH (09:38)
[2019-09-14] MEDS: ALLOPURINOL 100 MG TABLET PO SCH (09:38)
[2019-09-14] MEDS: GUAIFENESIN 600MG ER TABLET PO SCH ×2 (09:38→21:00)
[2019-09-14] MEDS: METOPROLOL TARTRATE 50MG TABLET PO SCH ×2 (09:39→21:00)
[2019-09-14] MEDS: TRAMADOL 50MG TABLET PO PRN (10:53)
[2019-09-14 20:00] VITALS: BP 107/54
[2019-09-14] MEDS: ATORVASTATIN CALCIUM 40MG TABLET PO SCH (21:00)
[2019-09-14] MEDS: ENOXAPARIN 30MG/0.3ML SYR SUBCUT SCH (21:00)
[2019-09-15] MEDS: IPRATROPIUM/ALBUTEROL 0.5-3(2.5)MG/3ML NEB HHN SCH ×6 (04:00→21:11)
[2019-09-15 08:11] VITALS: BP 126/61
[2019-09-15] MEDS: ALLOPURINOL 100 MG TABLET PO SCH (08:59)
[2019-09-15] MEDS: FOLIC ACID/VITAMIN B COMP W-C TABLET PO SCH (08:59)
[2019-09-15] MEDS: CLOPIDOGREL 75MG TABLET PO SCH (09:00)
[2019-09-15] MEDS: GUAIFENESIN 600MG ER TABLET PO SCH ×2 (09:00→21:01)
[2019-09-15] MEDS: METOPROLOL TARTRATE 50MG TABLET PO SCH ×2 (09:00→21:01)
[2019-09-15] MEDS: GALANTAMINE HBR 8MG ER CAPSULE 24HR PO SCH (09:00)
[2019-09-15 12:12] LABS: HEMATOCRIT. 31.7 % (42.0-52.0); HEMOGLOBIN. 10.6 g/dL (14.0-18.0); MEAN CORPUSCULAR HEMOGLOBIN 29.1 pg (28.0-32.0); MEAN CORPUSCULAR VOLUME 87.1 fL (80.0-94.0); MEAN PLATELET VOLUME 7.2 fl (7.4-10.4); PLATELET 185 x1000/uL (130-400); RED BLOOD CELL COUNT 3.65 mill/uL (4.7-6.1); RED CELL DISTRIBUTION WIDTH 21.8 % (11.6-14.6)
[2019-09-15 13:00] LABS: PLATELET ESTIMATE NORMAL
[2019-09-15 20:00] VITALS: BP 126/60
[2019-09-15] MEDS: ATORVASTATIN CALCIUM 40MG TABLET PO SCH (21:00)
[2019-09-15] MEDS: ENOXAPARIN 30MG/0.3ML SYR SUBCUT SCH (21:02)
[2019-09-16] MEDS: IPRATROPIUM/ALBUTEROL 0.5-3(2.5)MG/3ML NEB HHN SCH ×6 (04:00→20:00)
[2019-09-16 06:23] LABS: BASOPHILS % 0.3 % (0.0-2.0); EOSINOPHILS % 0.1 % (0.0-5.0); HEMATOCRIT. 31.9 % (42.0-52.0); HEMOGLOBIN. 10.8 g/dL (14.0-18.0); LYMPHOCYTES % 8.7 % (20.0-50.0); MEAN CORPUSCULAR HEMOGLOBIN 29.3 pg (28.0-32.0); MEAN CORPUSCULAR VOLUME 86.8 fL (80.0-94.0); MEAN PLATELET VOLUME 7.4 fl (7.4-10.4); MONOCYTES % 11.9 % (2.0-8.0); PLATELET 164 x1000/uL (130-400); RED BLOOD CELL COUNT 3.68 mill/uL (4.7-6.1); RED CELL DISTRIBUTION WIDTH 21.4 % (11.6-14.6)
[2019-09-16 07:53] VITALS: BP 83/44
[2019-09-16] MEDS: GALANTAMINE HBR 8MG ER CAPSULE 24HR PO SCH (08:36)
[2019-09-16] MEDS: CLOPIDOGREL 75MG TABLET PO SCH (08:36)
[2019-09-16] MEDS: GUAIFENESIN 600MG ER TABLET PO SCH ×3 (08:36→21:43)
[2019-09-16] MEDS: FOLIC ACID/VITAMIN B COMP W-C TABLET PO SCH (08:36)
[2019-09-16] MEDS: METOPROLOL TARTRATE 50MG TABLET PO SCH ×3 (08:37→21:43)
[2019-09-16] MEDS: ALLOPURINOL 100 MG TABLET PO SCH (08:37)
[2019-09-16 12:42] VITALS: BP 101/59
[2019-09-16 20:00] VITALS: BP 118/54
[2019-09-16] MEDS: ENOXAPARIN 30MG/0.3ML SYR SUBCUT SCH ×2 (21:00→21:44)
[2019-09-16] MEDS: ATORVASTATIN CALCIUM 40MG TABLET PO SCH ×2 (21:00→21:43)
[2019-09-17] MEDS: IPRATROPIUM/ALBUTEROL 0.5-3(2.5)MG/3ML NEB HHN SCH ×6 (00:14→20:06)
[2019-09-17 08:00] VITALS: BP 116/52
[2019-09-17] MEDS ORDERED: LIDOCAINE HCL/PF 1% 2ML VIAL ONE (09:00)
[2019-09-17] MEDS: FOLIC ACID/VITAMIN B COMP W-C TABLET PO SCH (09:21)
[2019-09-17] MEDS: ALLOPURINOL 100 MG TABLET PO SCH (09:21)
[2019-09-17] MEDS: GALANTAMINE HBR 8MG ER CAPSULE 24HR PO SCH (09:21)
[2019-09-17] MEDS: TRAMADOL 50MG TABLET PO PRN (09:21)
[2019-09-17] MEDS: GUAIFENESIN 600MG ER TABLET PO SCH ×2 (09:21→20:43)
[2019-09-17] MEDS: CLOPIDOGREL 75MG TABLET PO SCH (09:21)
[2019-09-17] MEDS: METOPROLOL TARTRATE 50MG TABLET PO SCH (09:22)
[2019-09-17 10:10] LABS: BG BASE EXCESS 2.3 mmol/L (-2.0-2.0); BG CARBOXYHEMOGLOBIN 0.3 % (0.5-1.5); BG DEOXYHEMOGLOBIN 2.4 % (0.0-5.0); BG FRACTION INSPIRED OXYGEN 28; BG METHEMOGLOBIN 0.2 % (0.0-1.5); BG OXYGEN SATURATION 97.6 % (92.0-98.5); BG OXYHEMOGLOBIN 97.1 % (94.0-97.0); BG PCO2 36.8 mmHg (35.0-45.0); BG PH 7.467 (7.350-7.450); BG PO2 108.9 mmHg (75.0-100.0); BG SAMPLE SITE RIGHT RADIAL; BG TOTAL HEMOGLOBIN 10.9 g/dL (12.0-18.0); BG VENT MODE NASAL CANNULA
[2019-09-17 20:00] VITALS: BP 107/48
[2019-09-17] MEDS: ATORVASTATIN CALCIUM 40MG TABLET PO SCH (20:43)
[2019-09-17] MEDS: ENOXAPARIN 30MG/0.3ML SYR SUBCUT SCH (20:44)
[2019-09-17] MEDS: METOPROLOL TARTRATE 25MG TABLET PO SCH (21:00)
[2019-09-18] MEDS: IPRATROPIUM/ALBUTEROL 0.5-3(2.5)MG/3ML NEB HHN SCH ×6 (00:55→21:34)
[2019-09-18 06:50] LABS: BASOPHILS % 0.3 % (0.0-2.0); EOSINOPHILS % 0.2 % (0.0-5.0); HEMATOCRIT. 29.3 % (42.0-52.0); HEMOGLOBIN. 9.9 g/dL (14.0-18.0); LYMPHOCYTES % 14.6 % (20.0-50.0); MEAN CORPUSCULAR HEMOGLOBIN 28.9 pg (28.0-32.0); MEAN CORPUSCULAR VOLUME 86.1 fL (80.0-94.0); MEAN PLATELET VOLUME 7.6 fl (7.4-10.4); MONOCYTES % 13.1 % (2.0-8.0); NEUTROPHILS % 71.8 % (40.0-76.0); PLATELET 133 x1000/uL (130-400); RED BLOOD CELL COUNT 3.41 mill/uL (4.7-6.1); RED CELL DISTRIBUTION WIDTH 21.4 % (11.6-14.6)
[2019-09-18 08:00] VITALS: BP 112/56
[2019-09-18 08:01] LABS: PHOSPHORUS 5.2 mg/dL (2.5-4.9)
[2019-09-18] MEDS: METOPROLOL TARTRATE 25MG TABLET PO SCH ×2 (08:31→21:00)
[2019-09-18] MEDS: FOLIC ACID/VITAMIN B COMP W-C TABLET PO SCH (08:31)
[2019-09-18] MEDS: CLOPIDOGREL 75MG TABLET PO SCH (08:31)
[2019-09-18] MEDS: ALLOPURINOL 100 MG TABLET PO SCH (08:32)
[2019-09-18] MEDS: GALANTAMINE HBR 8MG ER CAPSULE 24HR PO SCH (08:32)
[2019-09-18] MEDS: GUAIFENESIN 600MG ER TABLET PO SCH ×2 (08:32→21:59)
[2019-09-18] MEDS: TRAMADOL 50MG TABLET PO PRN (10:36)
[2019-09-18] MEDS ORDERED: ACETYLCYSTEINE 100MG/ML 10% VIAL 4ML INH ONE (11:00)
[2019-09-18] MEDS: ACETYLCYSTEINE 100MG/ML 10% VIAL 4ML INH SCH (15:25)
[2019-09-18 20:00] VITALS: BP 97/57
[2019-09-18] MEDS: ENOXAPARIN 30MG/0.3ML SYR SUBCUT SCH (21:57)
[2019-09-18] MEDS: ATORVASTATIN CALCIUM 40MG TABLET PO SCH (21:59)
[2019-09-18] MEDS: EPOETIN ALFA 10000UNITS/ML VIAL SUBCUT SCH (22:06)
[2019-09-19] MEDS: ACETYLCYSTEINE 100MG/ML 10% VIAL 4ML INH SCH ×4 (01:19→16:20)
[2019-09-19] MEDS: IPRATROPIUM/ALBUTEROL 0.5-3(2.5)MG/3ML NEB HHN SCH ×6 (01:22→20:31)
[2019-09-19 08:00] VITALS: BP 126/60
[2019-09-19] MEDS: CLOPIDOGREL 75MG TABLET PO SCH (08:20)
[2019-09-19] MEDS: GALANTAMINE HBR 8MG ER CAPSULE 24HR PO SCH (08:20)
[2019-09-19] MEDS: ALLOPURINOL 100 MG TABLET PO SCH (08:20)
[2019-09-19] MEDS: FOLIC ACID/VITAMIN B COMP W-C TABLET PO SCH (08:20)
[2019-09-19] MEDS: GUAIFENESIN 600MG ER TABLET PO SCH ×2 (08:20→21:28)
[2019-09-19] MEDS: METOPROLOL TARTRATE 25MG TABLET PO SCH ×2 (08:20→21:00)
[2019-09-19] MEDS ORDERED: DULOXETINE HCL 20MG DR CAPSULE PO SCH ×2 (10:00→13:00)
[2019-09-19 13:07] VITALS: BP 125/67
[2019-09-19 20:00] VITALS: BP_SYST 105; BP_SYST 123; BP_DIAS 46; BP_DIAS 73
[2019-09-19] MEDS: ATORVASTATIN CALCIUM 40MG TABLET PO SCH (21:28)
[2019-09-19] MEDS: ENOXAPARIN 30MG/0.3ML SYR SUBCUT SCH (21:28)
[2019-09-20] MEDS: IPRATROPIUM/ALBUTEROL 0.5-3(2.5)MG/3ML NEB HHN SCH ×6 (00:27→21:33)
[2019-09-20 07:00] VITALS: BP 160/84
[2019-09-20 07:25] LABS: BASOPHILS % 0.3 % (0.0-2.0); HEMATOCRIT. 31.1 % (42.0-52.0); HEMOGLOBIN. 10.3 g/dL (14.0-18.0); LYMPHOCYTES % 7.8 % (20.0-50.0); MEAN CORPUSCULAR VOLUME 87.4 fL (80.0-94.0); MEAN PLATELET VOLUME 7.9 fl (7.4-10.4); NEUTROPHILS % 83.9 % (40.0-76.0); PLATELET 145 x1000/uL (130-400); RED BLOOD CELL COUNT 3.56 mill/uL (4.7-6.1); RED CELL DISTRIBUTION WIDTH 22.2 % (11.6-14.6)
[2019-09-20] MEDS: ACETYLCYSTEINE 100MG/ML 10% VIAL 4ML INH SCH (07:35)
[2019-09-20] MEDS ORDERED: DULOXETINE HCL 20MG DR CAPSULE PO SCH (09:00)
[2019-09-20] MEDS: GUAIFENESIN 600MG ER TABLET PO SCH ×2 (09:24→21:07)
[2019-09-20] MEDS: ALLOPURINOL 100 MG TABLET PO SCH (09:24)
[2019-09-20] MEDS: GALANTAMINE HBR 8MG ER CAPSULE 24HR PO SCH (09:24)
[2019-09-20] MEDS: CLOPIDOGREL 75MG TABLET PO SCH (09:24)
[2019-09-20] MEDS: FOLIC ACID/VITAMIN B COMP W-C TABLET PO SCH (09:24)
[2019-09-20] MEDS: METOPROLOL TARTRATE 25MG TABLET PO SCH ×2 (09:25→21:07)
[2019-09-20 09:30] VITALS: BP 112/55
[2019-09-20] MEDS ORDERED: METOPROLOL TARTRATE 25MG TABLET PO NR (16:00)
[2019-09-20 16:10] VITALS: BP 110/59
[2019-09-20 17:15] VITALS: BP 96/60
[2019-09-20 20:00] VITALS: BP 110/64
[2019-09-20] MEDS: ENOXAPARIN 30MG/0.3ML SYR SUBCUT SCH (21:07)
[2019-09-20] MEDS: ATORVASTATIN CALCIUM 40MG TABLET PO SCH (21:08)
[2019-09-21] VITALS (7 sets, daily range): BP systolic 85–113; BP diastolic 45–66
[2019-09-21] MEDS: ACETYLCYSTEINE 100MG/ML 10% VIAL 4ML INH SCH ×3 (01:15→15:52)
[2019-09-21] MEDS: IPRATROPIUM/ALBUTEROL 0.5-3(2.5)MG/3ML NEB HHN SCH ×6 (01:21→21:40)
[2019-09-21] MEDS ORDERED: SODIUM CHLORIDE 0.9% 250 ML IV PRN (09:00)
[2019-09-21] MEDS: METOPROLOL TARTRATE 25MG TABLET PO SCH ×2 (09:00→21:00)
[2019-09-21] MEDS: GUAIFENESIN 600MG ER TABLET PO SCH ×2 (09:42→21:48)
[2019-09-21] MEDS: FOLIC ACID/VITAMIN B COMP W-C TABLET PO SCH (09:42)
[2019-09-21] MEDS: CLOPIDOGREL 75MG TABLET PO SCH (09:42)
[2019-09-21] MEDS: GALANTAMINE HBR 8MG ER CAPSULE 24HR PO SCH (09:42)
[2019-09-21] MEDS: ALLOPURINOL 100 MG TABLET PO SCH (09:42)
[2019-09-21] MEDS: MIDODRINE HCL 5MG TABLET PO SCH ×3 (09:43→20:00)
[2019-09-21] MEDS: MEGESTROL ACETATE 400 MG/10 ML UDC PO SCH (09:43)
[2019-09-21] MEDS: ATORVASTATIN CALCIUM 40MG TABLET PO SCH (21:48)
[2019-09-21] MEDS: ENOXAPARIN 30MG/0.3ML SYR SUBCUT SCH (21:49)
[2019-09-22] MEDS: ACETYLCYSTEINE 100MG/ML 10% VIAL 4ML INH SCH ×3 (01:57→20:39)
[2019-09-22] MEDS: IPRATROPIUM/ALBUTEROL 0.5-3(2.5)MG/3ML NEB HHN SCH ×6 (01:58→20:07)
[2019-09-22 07:47] VITALS: BP 126/69
[2019-09-22 08:30] LABS: HEMATOCRIT. 28.6 % (42.0-52.0); HEMOGLOBIN. 9.6 g/dL (14.0-18.0); MEAN CORPUSCULAR HEMOGLOBIN 28.8 pg (28.0-32.0); MEAN CORPUSCULAR VOLUME 85.6 fL (80.0-94.0); MEAN PLATELET VOLUME 8.1 fl (7.4-10.4); PLATELET 201 x1000/uL (130-400); RED BLOOD CELL COUNT 3.35 mill/uL (4.7-6.1); RED CELL DISTRIBUTION WIDTH 22.3 % (11.6-14.6)
[2019-09-22] MEDS: FOLIC ACID/VITAMIN B COMP W-C TABLET PO SCH (09:00)
[2019-09-22] MEDS: METOPROLOL TARTRATE 25MG TABLET PO SCH ×2 (09:00→20:37)
[2019-09-22] MEDS: GUAIFENESIN 600MG ER TABLET PO SCH ×2 (09:00→20:39)
[2019-09-22] MEDS: MEGESTROL ACETATE 400 MG/10 ML UDC PO SCH (09:00)
[2019-09-22] MEDS: ALLOPURINOL 100 MG TABLET PO SCH (09:00)
[2019-09-22] MEDS: CLOPIDOGREL 75MG TABLET PO SCH (09:00)
[2019-09-22] MEDS: GALANTAMINE HBR 8MG ER CAPSULE 24HR PO SCH (09:00)
[2019-09-22] MEDS: MIDODRINE HCL 5MG TABLET PO SCH ×3 (09:00→16:33)
[2019-09-22 14:22] LABS: PLATELET ESTIMATE NORMAL
[2019-09-22 14:44] VITALS: BP 126/69
[2019-09-22 20:00] VITALS: BP 105/62
[2019-09-22] MEDS: ENOXAPARIN 30MG/0.3ML SYR SUBCUT SCH (20:39)
[2019-09-22] MEDS: ATORVASTATIN CALCIUM 40MG TABLET PO SCH (20:39)
[2019-09-23] MEDS: ACETYLCYSTEINE 100MG/ML 10% VIAL 4ML INH SCH ×2 (00:02→07:24)
[2019-09-23] MEDS: IPRATROPIUM/ALBUTEROL 0.5-3(2.5)MG/3ML NEB HHN SCH ×3 (00:03→07:24)
[2019-09-23 08:00] VITALS: BP 133/63
[2019-09-23] MEDS ORDERED: DEXT 5%/0.45% NACL 1000ML 1,000 ML IV SCH (08:30)
[2019-09-23 08:41] VITALS: BP 133/63
[2019-09-23 09:11] LABS: BG BASE EXCESS -6.3 mmol/L (-2.0-2.0); BG CARBOXYHEMOGLOBIN 0.3 % (0.5-1.5); BG FRACTION INSPIRED OXYGEN 100; BG HCO3 ACT 17.1 mmol/L (22.0-26.0); BG METHEMOGLOBIN 0.2 % (0.0-1.5); BG OXYHEMOGLOBIN 97.5 % (94.0-97.0); BG PCO2 27.5 mmHg (35.0-45.0); BG PH 7.412 (7.350-7.450); BG PO2 119.1 mmHg (75.0-100.0); BG SAMPLE SITE RIGHT BRACHIAL; BG TOTAL HEMOGLOBIN 10.9 g/dL (12.0-18.0); BG VENT MODE MASK - NRB
== END 2019-09-23 10:00 | disposition short-term general hospital (02) | DRG 64 ==
PROVIDERS: ADMIT Psychiatry & Neurology Neurology; ATTEND Internal Medicine Geriatric Medicine
PROC: 5A1D70Z Performance of Urinary Filtration, Intermittent, Less than 6 Hours Per Day (ICD-10-PCS; principal; 2019-09-13)
PROC: 5A1D70Z Performance of Urinary Filtration, Intermittent, Less than 6 Hours Per Day (ICD-10-PCS; 2019-09-15)
PROC: 5A1D70Z Performance of Urinary Filtration, Intermittent, Less than 6 Hours Per Day (ICD-10-PCS; 2019-09-18)
PROC: 5A1D70Z Performance of Urinary Filtration, Intermittent, Less than 6 Hours Per Day (ICD-10-PCS; 2019-09-20)
PROC: 5A1D70Z Performance of Urinary Filtration, Intermittent, Less than 6 Hours Per Day (ICD-10-PCS; 2019-09-22)
DX: I63.9 Cerebral infarction, unspecified (principal); G93.41 Metabolic encephalopathy; I50.43 Acute on chronic combined systolic (congestive) and diastolic (congestive) heart failure; E43 Unspecified severe protein-calorie malnutrition; N18.6 End stage renal disease; I13.2 Hypertensive heart and chronic kidney disease with heart failure and with stage 5 chronic kidney disease, or end stage renal disease; C90.00 Multiple myeloma not having achieved remission; J44.1 Chronic obstructive pulmonary disease with (acute) exacerbation; F02.81 Dementia in other diseases classified elsewhere, unspecified severity, with behavioral disturbance; E87.1 Hypo-osmolality and hyponatremia; Z68.1 Body mass index [BMI] 19.9 or less, adult; D64.9 Anemia, unspecified; I48.0 Paroxysmal atrial fibrillation; I95.9 Hypotension, unspecified; G35 Multiple sclerosis; M19.90 Unspecified osteoarthritis, unspecified site; M10.9 Gout, unspecified; G30.9 Alzheimer's disease, unspecified; K57.90 Diverticulosis of intestine, part unspecified, without perforation or abscess without bleeding; F06.31 Mood disorder due to known physiological condition with depressive features; F32.9 Major depressive disorder, single episode, unspecified; R53.81 Other malaise; R62.7 Adult failure to thrive; F80.2 Mixed receptive-expressive language disorder; Z22.322 Carrier or suspected carrier of Methicillin resistant Staphylococcus aureus; Z79.899 Other long term (current) drug therapy; Z99.2 Dependence on renal dialysis; Z87.01 Personal history of pneumonia (recurrent)
CPT/HCPCS: 36415; 36600; 71045; 80048; 80051; 82375; 82533; 82805; 82962; 84100; 92523; 92610; 93005; 94640; 97110; 97116; 97150; 97163; 97167; 97530; 97535; A6261; C1893; J0885; J1650; J3490; J7608; J7620

== ENCOUNTER 2019-09-23 10:24 | Inpatient (IN) | payer MEDICARE, BC ==
[2019-09-23] VITALS (49 sets, daily range): BP systolic 64–138; BP diastolic 37–84
[~2019-09-23] VITALS: Ht 170.2 cm; Wt 43.1 kg
[~2019-09-23 10:24] MED LIST changes: -FERR325T6 PO; -PRED-276 PO
[2019-09-23] MEDS ORDERED: ONDANSETRON HCL 4MG/2ML INJ IV PRN (10:30)
[2019-09-23] MEDS ORDERED: IPRATROPIUM/ALBUTEROL 0.5-3(2.5)MG/3ML NEB NEB PRN (10:30)
[2019-09-23] MEDS ORDERED: PIPERACILLIN/TAZ 3.375G PREMIX 50 ML IV SCH (10:30)
[2019-09-23] MEDS ORDERED: ACETAMINOPHEN 650MG/20.3ML UDC NG PRN (10:30)
[2019-09-23] MEDS ORDERED: DEXT 5%/0.45% NACL 1000ML 1,000 ML IV SCH (11:00)
[2019-09-23] MEDS ORDERED: PANTOPRAZOLE SODIUM 40 MG/VIAL IV SCH (11:00)
[2019-09-23] MEDS ORDERED: ENOXAPARIN 30MG/0.3ML SYR SUBCUT SCH (11:00)
[2019-09-23] MEDS ORDERED: CLOPIDOGREL 75MG TABLET NG SCH (11:00)
[2019-09-23] MEDS ORDERED: ETOMIDATE 2MG/ML 10ML VIAL IV ONE (12:00)
[2019-09-23] MEDS ORDERED: SODIUM CHLORIDE 0.9% 10ML VIAL ONE (12:00)
[2019-09-23 12:07] LABS: HEMATOCRIT. 30.6 % (42.0-52.0); HEMOGLOBIN. 10.1 g/dL (14.0-18.0); MEAN CORPUSCULAR HEMOGLOBIN 29.2 pg (28.0-32.0); MEAN CORPUSCULAR VOLUME 88.2 fL (80.0-94.0); PLATELET 210 x1000/uL (130-400); RED BLOOD CELL COUNT 3.47 mill/uL (4.7-6.1); RED CELL DISTRIBUTION WIDTH 22.2 % (11.6-14.6)
[2019-09-23 12:41] LABS: NUCLEATED RED BLOOD CELLS 6 /100 WBC; PLATELET ESTIMATE NORMAL
[2019-09-23] MEDS ORDERED: VANCOMYCIN 1 G PREMIX 200 ML IV SCH (13:00)
[2019-09-23] MEDS: PROPOFOL 10MG/ML 100ML 100 ML IV PRN (13:07)
[2019-09-23 13:09] LABS: BG CARBOXYHEMOGLOBIN 0.2 % (0.5-1.5); BG DEOXYHEMOGLOBIN 1.8 % (0.0-5.0); BG FRACTION INSPIRED OXYGEN 100; BG HCO3 ACT 12.4 mmol/L (22.0-26.0); BG METHEMOGLOBIN 1.3 % (0.0-1.5); BG OXYGEN SATURATION 98.2 % (92.0-98.5); BG OXYHEMOGLOBIN 96.7 % (94.0-97.0); BG PCO2 27.6 mmHg (35.0-45.0); BG PH 7.271 (7.350-7.450); BG SAMPLE SITE RIGHT BRACHIAL; BG TIDAL VOLUME(mL) 400 mL; BG TOTAL HEMOGLOBIN 11.1 g/dL (12.0-18.0); BG VENT MODE VENT - A/C; BG VENT RATE 16 set
[2019-09-23] MEDS ORDERED: SODIUM BICARBONATE 8.4% 1 MEQ/ML 50ML SYR IV SCH (13:15)
[2019-09-23] MEDS ORDERED: SODIUM CHLORIDE 0.9% 500 ML IV SCH (13:45)
[2019-09-23] MEDS: PIPERACILLIN/TAZOBACTAM 2.25 G in DEXTROSE 5% WATER 50 ML IV SCH ×2 (13:51→22:21)
[2019-09-23] MEDS: SODIUM BICARBONATE 100 MEQ in DEXTROSE 5% WATER 1,000 ML IV SCH (14:30)
[2019-09-23] MEDS: PHENYLEPHRINE 20 MG in DEXT 5% WATER 248 ML IV PRN ×2 (14:49→16:46)
[2019-09-23] MEDS: NOREPINEPHRINE 16 MG in DEXT 5% WATER 234 ML IV PRN (17:31)
[2019-09-23] MEDS ORDERED: ENOXAPARIN 40MG/0.4ML SYR SUBCUT ONE (17:45)
[2019-09-23] MEDS ORDERED: ENOXAPARIN 60MG/0.6ML SYR SUBCUT NR (18:00)
[2019-09-23] MEDS: PHENYLEPHRINE 80 MG in DEXT 5% WATER 492 ML IV PRN ×2 (19:58→23:20)
[2019-09-23] MEDS ORDERED: VASOPRESSIN 10 UNIT in SODIUM CHLORIDE 0.9% 99.5 ML IV PRN (20:15)
[2019-09-23] MEDS ORDERED: ATORVASTATIN CALCIUM 40MG TABLET NG SCH (21:00)
[2019-09-23] MEDS: HYDROCORTISONE SOD SUCCINATE 100 MG/2 ML VIAL IV SCH (22:23)
[2019-09-24] VITALS (39 sets, daily range): BP systolic 91–153; BP diastolic 46–78
[2019-09-24] MEDS: NOREPINEPHRINE 16 MG in DEXT 5% WATER 234 ML IV PRN (01:32)
[2019-09-24 05:11] LABS: HEMATOCRIT. 24.7 % (42.0-52.0); HEMOGLOBIN. 8.1 g/dL (14.0-18.0); MEAN CORPUSCULAR HEMOGLOBIN 28.9 pg (28.0-32.0); MEAN CORPUSCULAR VOLUME 87.9 fL (80.0-94.0); MEAN PLATELET VOLUME 8.1 fl (7.4-10.4); PLATELET 102 x1000/uL (130-400); RED BLOOD CELL COUNT 2.81 mill/uL (4.7-6.1); RED CELL DISTRIBUTION WIDTH 21.9 % (11.6-14.6)
[2019-09-24] MEDS: HYDROCORTISONE SOD SUCCINATE 100 MG/2 ML VIAL IV SCH (06:03)
[2019-09-24] MEDS: SODIUM BICARBONATE 100 MEQ in DEXTROSE 5% WATER 1,000 ML IV SCH (06:03)
[2019-09-24] MEDS: PROPOFOL 10MG/ML 100ML 100 ML IV PRN (06:04)
[2019-09-24] MEDS: PHENYLEPHRINE 80 MG in DEXT 5% WATER 492 ML IV PRN (06:49)
[2019-09-24] MEDS ORDERED: SODIUM CHLORIDE 3% 500ML IV SOLN IV ONE (07:30)
[2019-09-24 08:45] LABS: BG CARBOXYHEMOGLOBIN 0.7 % (0.5-1.5); BG DEOXYHEMOGLOBIN 4.1 % (0.0-5.0); BG FRACTION INSPIRED OXYGEN 75; BG HCO3 ACT 12.3 mmol/L (22.0-26.0); BG METHEMOGLOBIN 0.3 % (0.0-1.5); BG OXYGEN SATURATION 95.9 % (92.0-98.5); BG OXYHEMOGLOBIN 94.9 % (94.0-97.0); BG PCO2 23.2 mmHg (35.0-45.0); BG PH 7.342 (7.350-7.450); BG PO2 95.5 mmHg (75.0-100.0); BG SAMPLE SITE RIGHT RADIAL; BG TIDAL VOLUME(mL) 400 mL; BG TOTAL HEMOGLOBIN 8.6 g/dL (12.0-18.0); BG VENT MODE VENT - A/C; BG VENT RATE 16 set
[2019-09-24] MEDS ORDERED: SODIUM CHLORIDE 3% 500 ML IV SCH (09:00)
[2019-09-24 09:04] LABS: NUCLEATED RED BLOOD CELLS 14 /100 WBC; PLATELET ESTIMATE DECREASED
[2019-09-24] MEDS: PIPERACILLIN/TAZOBACTAM 2.25 G in DEXTROSE 5% WATER 50 ML IV SCH (09:22)
[2019-09-24] MEDS ORDERED: SODIUM BICARBONATE 100 MEQ in DEXT 5%/0.9% NACL 1,000 ML IV SCH (10:00)
[2019-09-24] MEDS ORDERED: PANTOPRAZOLE 80 MG in SODIUM CHLORIDE 0.9% 100 ML IV SCH (10:00)
[2019-09-24] MEDS ORDERED: VANCOMYCIN 750 MG PREMIX 150 ML IV SCH (13:00)
[2019-09-24] MEDS ORDERED: EPOETIN ALFA 10000UNITS/ML VIAL SUBCUT SCH (21:00)
[2019-09-25] MEDS ORDERED: EPOETIN ALFA 4000UNITS/ML VIAL SUBCUT SCH (21:00)
== END 2019-09-24 10:36 | disposition expired | DRG 871 ==
LOC: 8WST 10:24 → CVICU 10:48
PROVIDERS: ADMIT Internal Medicine Geriatric Medicine; ATTEND Internal Medicine Geriatric Medicine
PROC: 05HY33Z Insertion of Infusion Device into Upper Vein, Percutaneous Approach (ICD-10-PCS; principal; 2019-09-23)
PROC: B54MZZA Ultrasonography of Right Upper Extremity Veins, Guidance (ICD-10-PCS; 2019-09-23)
PROC: 5A1935Z Respiratory Ventilation, Less than 24 Consecutive Hours (ICD-10-PCS; 2019-09-23)
PROC: 0BH17EZ Insertion of Endotracheal Airway into Trachea, Via Natural or Artificial Opening (ICD-10-PCS; 2019-09-23)
DX: A41.9 Sepsis, unspecified organism (principal); J96.01 Acute respiratory failure with hypoxia; E43 Unspecified severe protein-calorie malnutrition; G92 Toxic encephalopathy; N18.6 End stage renal disease; I21.4 Non-ST elevation (NSTEMI) myocardial infarction; J69.0 Pneumonitis due to inhalation of food and vomit; K29.71 Gastritis, unspecified, with bleeding; R65.21 Severe sepsis with septic shock; E87.2 Acidosis; I13.2 Hypertensive heart and chronic kidney disease with heart failure and with stage 5 chronic kidney disease, or end stage renal disease; R64 Cachexia; C90.00 Multiple myeloma not having achieved remission; E22.2 Syndrome of inappropriate secretion of antidiuretic hormone; I50.9 Heart failure, unspecified; J44.9 Chronic obstructive pulmonary disease, unspecified; E87.5 Hyperkalemia; E86.9 Volume depletion, unspecified; D21.9 Benign neoplasm of connective and other soft tissue, unspecified; D63.8 Anemia in other chronic diseases classified elsewhere; D69.6 Thrombocytopenia, unspecified; F02.80 Dementia in other diseases classified elsewhere, unspecified severity, without behavioral disturbance, psychotic disturbance, mood disturbance, and anxiety; F32.9 Major depressive disorder, single episode, unspecified; G30.9 Alzheimer's disease, unspecified; I27.20 Pulmonary hypertension, unspecified; I48.0 Paroxysmal atrial fibrillation; Z66 Do not resuscitate; E16.2 Hypoglycemia, unspecified; M10.9 Gout, unspecified; Z99.2 Dependence on renal dialysis
CPT/HCPCS: 31500; 36415; 36573; 36600; 71045; 78580; 80048; 80202; 82375; 82805; 83540; 83550; 83605; 84478; 84484; 85379; 86850; 86900; 87070; 87077; 93005; 93970; 94002; 94003; 94640; 95816; C1725; C1893; C9113; J1650; J1720; J2370; J2543; J2704; J3370; J3490; J7042; J7050; J7060; J7070; J7620; A4315